=== PATIENT | male | born 1980 | race Caucasian/White ===

== ENCOUNTER → 2018-06-03 | Outpatient (CLI) | payer OTHER ==
--- NOTE | 2018-06-03 16:43 | RADIOLOGY IMAGING REPORT ---
FACILITY: [facility] PATIENT NAME: Greyson Doe : 1980 MR: [id number] V: [id number] EXAM DATE: ORDERING PHYSICIAN: DECLAN FLANAGAN TECHNOLOGIST: Location[place] [facility] [place] Patient: Greyson Doe : 1980 Visit/Account:[id number] Date of Sevice: 06/03/2018 Exam type: US VENOUS LOWER EXT LT History: Left leg mid lobe thigh pain, long road trip's Comparison: None. Findings: The left first 20 veins were imaged including the left common femoral vein greater saphenous vein sup erficial femoral vein, popliteal vein, posterior tibial vein, peroneal vein and anterior tibial vein revealing no evidence of intraluminal thrombi the veins were compressible and demonstrated augmentati on IMPRESSION: 1. No sonographic evidence DVT involving the left lower extremity veins Report Dictated By: Mickie Douglass MD at 06/03/2018 4:36 PM Report E-Signed By: Mickie Douglass MD at 06/03/2018 4:39 PM WSN:[id number]
== END ==
LOC: US 14:52
PROVIDERS: ATTEND Family Medicine
DX: M79.605 Pain in left leg (principal)